=== PATIENT | female | born 1955 | race African-American/Black ===

== ENCOUNTER 2019-09-24 20:02 | Emergency (ER) | payer BC ==
[~2019-09-24] VITALS: Ht 160 cm; Wt 63.6 kg
[~2019-09-24 20:02] MED LIST: ATEN-187 PO; BENA1TAB3 PO; CLON1TAB13 PO; NAPR-1025 PO; OMEP20 PO; TRAM50TA4 PO
[2019-09-24] MEDS ORDERED: ACETAMINOPHEN 325 MG TABLET PO ONE (22:15)
[2019-09-24 23:27] LABS: HEMATOCRIT 46.8 % (36-46); HEMOGLOBIN 15.3 g/dL (12.0-16.0); MEAN CORPUSCULAR HEMOGLOBIN 31.1 pg (26.0-34.0); MEAN CORPUSCULAR HGB CONC 32.8 G/dL (31.0-37.0); MEAN CORPUSCULAR VOLUME 95 fL (80-100); PLATELET COUNT (AUTO) 264 K/uL (150-450); RED BLOOD CELL COUNT(AUTO) 4.94 MIL/uL (4.00-5.20); RED CELL DISTRIBUTION WIDTH 13.9 % (11.5-14.5)
[2019-09-24 23:32] LABS: ANION GAP 6 mmol/L (8-16); CALCIUM, TOTAL 9.1 mg/dL (8.8-10.5); CARBON DIOXIDE 30 mmol/L (22-29); CHLORIDE 105 mmol/L (98-107); GLOMERULAR FILTR. RATE CALC > 60 mL/min (>60); GLUCOSE,RANDOM 123 mg/dL (70-110); SODIUM SERUM 141 mmol/L (136-145); UREA NITROGEN, BLOOD 11 mg/dL (7-18)
[2019-09-24 23:44] LABS: B-TYPE NATRIURETIC PEPTIDE 15 pg/mL (0-100)
[2019-09-24 23:46] LABS: ALANINE AMINOTRANSFERASE 19 U/L (12-78); ALBUMIN 3.8 g/dL (3.4-5.0); ALKALINE PHOSPHATASE 75 U/L (46-116); ASPARTATE AMINOTRANSFERASE 15 U/L (15-37); BILIRUBIN,TOTAL 0.2 mg/dL (0.1-1.0); FREE T4 (FREE THYROXINE) 1.29 ng/dL (0.76-1.46); THYROID STIMULATING HORMONE 0.16 uIU/mL (0.36-3.74); TOTAL PROTEIN, SERUM 7.9 g/dL (6.4-8.2)
[2019-09-24 23:50] LABS: D-DIMER 0.56 mg/L FEU (0.00-0.50); INR 0.9 (0.9-1.1)
[2019-09-25 00:46] LABS: BAND NEUTROPHILS % (MANUAL) 2 % (0-5); BASOPHILS % (MANUAL) 1 % (0-2); EOSINOPHILS % (MANUAL) 1 % (1-6); LYMPHOCYTES % (MANUAL) 28 % (22-44); MONOCYTES % (MANUAL) 7 % (2-9); SEGMENTED NEUTROPHILS % 61 % (40-70)
[2019-09-25 02:00] VITALS: BP 136/86
== END 2019-09-25 02:05 | disposition home or self-care (01) ==
LOC: EMS 20:02
DX: Z03.818 Encounter for observation for suspected exposure to other biological agents ruled out (principal); M79.604 Pain in right leg; M79.605 Pain in left leg; R00.0 Tachycardia, unspecified; R00.2 Palpitations; I10 Essential (primary) hypertension; G89.29 Other chronic pain
CPT/HCPCS: 36415; 71045; 80053; 83880; 84439; 84443; 84484; 85025; 85379; 85610; 85730; 93005; 93970; 99285; U0003